=== PATIENT | male | born 1985 ===

== ENCOUNTER 2025-06-04 08:24 | Outpatient (CLI) | payer MEDICAID ==
[2025-06-04 09:11] LABS: Hematocrit 49.9 % (41.0-53.0); Hemoglobin 17.5 g/dL (13.5-17.5); Mean Corpuscular Hemoglobin 30.0 pg (28.0-32.0); Mean Corpuscular Volume 85.8 fL (80.0-100.0); Nucleated Red Blood Cells % 0.1 %
[2025-06-04 09:32] LABS: Alanine Aminotransferase 37 U/L (7-40); Albumin 4.7 g/dL (3.2-4.8); Alkaline Phosphatase 76 U/L (46-116); Anion Gap 11 (5-15); BUN/Creatinine Ratio 9.3 (10.0-20.0); Calcium 9.3 mg/dL (8.7-10.4); Carbon Dioxide 26 mmol/L (20-31); Chloride 101 mmol/L (98-107); Glucose 98 mg/dL (74-106); Potassium 3.8 mmol/L (3.5-5.1); Sodium 138 mmol/L (136-145)
[2025-06-04 09:33] LABS: Bilirubin, Total 0.8 mg/dL (0.2-1.0); HDL Cholesterol 46 mg/dL (40-59)
[2025-06-04 09:46] LABS: Blood Urea Nitrogen 8 mg/dL (9-23); Cholesterol 238 mg/dL (< 200); Total Protein 8.4 g/dL (5.7-8.2); Triglycerides 159 mg/dL (< 150)
== END 2025-06-04 17:00 | disposition home or self-care (01) ==
LOC: LAB 08:24
PROVIDERS: ATTEND Internal Medicine
DX: Z00.01 Encounter for general adult medical examination with abnormal findings (principal)
CPT/HCPCS: 36415; 80053; 80061; 82306; 83036; 84439; 84443; 85025